=== PATIENT | female | born 1955 | race Hispanic/Latino ===

== ENCOUNTER 2017-05-31 13:52 | Inpatient (IN) | payer MEDICAID, MEDICARE ==
[2017-05-31 13:53] VITALS: BMI 28.6
[2017-05-31 14:56] LABS: BASO # 0.1 K/uL (0.0-0.2); BASO % 0.8 % (0.0-2.0); EOS # 0.4 K/uL (0.0-0.7); EOS % 3.2 % (0.0-4.0); HEMATOCRIT 39.7 % (34.0-47.0); LYMPH % 24.5 % (20.0-40.0); MEAN CELL VOLUME 85.9 fl (81.0-99.0); MEAN CORPUSCULAR HEMOGLOBIN 28.5 pg (27.0-31.0); MEAN CORPUSCULAR HGB CONC 33.2 g/dL (33.0-37.0); MONO # 0.6 K/uL (0.0-0.8); NEUT # 8.2 K/uL (1.8-7.0); NEUT % 66.5 % (50.0-75.0); RED CELL DISTRIBUTION WIDTH 13.2 % (11.5-14.5); WHITE BLOOD COUNT 12.3 K/uL (4.8-10.8)
[2017-05-31 15:06] LABS: ALB/GLOB RATIO 1.1 (1.0-2.1); ALKALINE PHOSPHATASE 98 U/L (38-126); ALT/SGPT 33 U/L (9-52); AST/SGOT 23 U/L (14-36); BILIRUBIN,TOTAL 0.8 mg/dl (0.2-1.3); BLOOD UREA NITROGEN 15 mg/dl (7-17); CALCIUM 9.8 mg/dL (8.4-10.2); CARBON DIOXIDE 24 mmol/L (22-30); CHLORIDE 107 mmol/L (98-107); GFR AFRICAN-AMERICAN > 60; GLUCOSE,RANDOM 112 mg/dL (65-105); POTASSIUM 4.2 MMOL/L (3.6-5.0); SODIUM 144 mmol/l (132-148)
--- NOTE | 2017-05-31 15:24 | ED PDOC ---
HPI: Psych/Substance Abuse Time Seen by Provider: 05/31/17 14:11 Chief Complaint (Nursing): Psychiatric Evaluation Chief Complaint (Provider): Psychiatric Evaluation ED Caveat: Other (Confusion) History Per: Patient History/Exam Limitations: clinical condition Onset/Duration Of Symptoms: Days (x 2-3 weeks) Current Symptoms Are (Timing): Still Present Associated Symptoms: Paranoia, Suicidal Thoughts Additional Complaint(s): Sierra Cao is a 61 y/o female who was brought to the ED for psych evaluation. Patient has a past medical history of depression and schizophrenia, chronic back pain, diabetes, and hypertension, and is mostly bed bound, cared for by sister. Sister states for the past several weeks and especially this morning, patient is having suicidal ideations with paranoia and hallucinations of relatives in the room. Patient has been seeing Dr. Lino, who has been prescribing pain medicine for her back pain. Patient herself appears confused and is a poor historian. PMD: David Lino MD Past Medical History Reviewed: Historical Data, Nursing Documentation, Vital Signs Vital Signs: Last Vital Signs Temp 98.1 F 05/31/17 14:03 Pulse 81 05/31/17 14:03 Resp 20 05/31/17 14:03 BP 198/94 H 05/31/17 14:03 Pulse Ox 99 05/31/17 14:03 - Medical History PMH: Dementia, Depression, Diabetes, HTN, Hypercholesterolemia, Multiple Sclerosis, Paranoia, Schizophrenia Denies: HIV, Chronic Kidney Disease - Surgical History Surgical History: Denies: Appendectomy, CABG, Carotid Endarterectomy, Cholecystectomy, Coronary Stent, Pacemaker, Tonsillectomy - Family History Family History: States: Unknown Family Hx - Living Arrangements Living Arrangements: With Family - Social History Current smoker - smoking cessation education provided: No Alcohol: None Drugs: Denies - Home Medications Home Medications: Ambulatory Orders Medication Instructions Recorded amLODIPine [Norvasc] 10 mg PO DAILY 11/02/16 Atorvastatin [Lipitor] 20 mg PO HS tab 11/06/16 Cholecalciferol (Vitamin D3) 5,000 unit PO DAILY #30 tablet 11/12/16 [Vitamin D3] Lisinopril [Zestril] 20 mg PO DAILY #30 tab 11/12/16 Metoprolol Tartrate [Lopressor] 25 mg PO Q12 #60 tab 11/12/16 Nystatin [Nystop Topical Powder] 1 applic TOP TID #1 bottle 11/12/16 Saccharomyces Boulardi [Florastor] 250 mg PO BID #14 cap 11/12/16 - Allergies Allergies/Adverse Reactions: Allergies Allergy/AdvReac Type Severity Reaction Status Date / Time No Known Allergies Allergy Verified 11/06/16 16:01 Review of Systems Review Of Systems: ROS cannot be obtained secondary to pt's inabilty to answer questions. Physical Exam - Reviewed Nursing Documentation Reviewed: Yes Vital Signs Reviewed: Yes - Physical Exam Appears: Positive for: Non-toxic, No Acute Distress (but elderly appearing) Head Exam: Positive for: ATRAUMATIC, NORMAL INSPECTION, NORMOCEPHALIC Skin: Positive for: Warm, Dry, Pallor (Mild) Eye Exam: Positive for: EOMI, Normal appearance, PERRL Neck: Positive for: Normal, Painless ROM, Supple Cardiovascular/Chest: Positive for: Regular Rate, Rhythm. Negative for: Murmur Respiratory: Positive for: Normal Breath Sounds. Negative for: Accessory Muscle Use, Respiratory Distress Gastrointestinal/Abdominal: Positive for: Normal Exam, Soft. Negative for: Tenderness Extremity: Positive for: Other (global weakness with 4/5 strength bilaterally). Negative for: Normal ROM Neurologic/Psych: Positive for: Oriented (to self and place), Other (paranoia with poor insight) - Laboratory Results Result Diagrams: 06/01/17 07:00 05/31/17 14:40 - ECG O2 Sat by Pulse Oximetry: 99 (RA) Pulse Ox Interpretation: Normal Medical Decision Making Medical Decision Making: Time: 14:11 Initial Plan: --Medical work up to exclude infection, metabolic derangement, dehydration, or other acute medical condition --Will have crisis evaluation Time: 15:00 --Labs were reviewed, and appear clinically unremarkable Time: 16:49 Chest X-Ray: FINDINGS: LUNGS: No active pulmonary disease. PLEURA: No significant pleural effusion identified. No pneumothorax apparent. CARDIOVASCULAR: Normal. OSSEOUS STRUCTURES: No significant abnormalities. VISUALIZED UPPER ABDOMEN: Normal. OTHER FINDINGS: None. IMPRESSION: No active disease. No significant interval change compared to the prior examination(s). Time: 16:00 --Patient placed on ED-OBS for depression, goal: crisis evaluation *SEE ED-OBS TAB FOR FURTHER DOCUMENTATION Scribe Attestation: Documented by Malia Santana, acting as a scribe for Louis Patterson III, DO Provider Scribe Attestation: All medical record entries made by the Scribe were at my direction and personally dictated by me. I have reviewed the chart and agree that the record accurately reflects my personal performance of the history, physical exam, medical decision making, and the department course for this patient. I have also personally directed, reviewed, and agree with the discharge instructions and disposition. ED OBSERVATION Date of observation admission: 05/31/17 Time of observation admission: 16:00 - Observation admission statement Patient is being placed in observation because:: Depression - Goals of Observation Goals of observation are:: Crisis evaluation - Progress Note Progress Note: 05/31/17 Time: 16:00 --Patient is resting. Vital signs stable. Time: 17:30 --Patient resting comfortably. Vital signs stable. --Still pending crisis evaluation Time: 18:30 --Still pending urine and crisis evaluation Time: 19:00 --Patient signed out by me to Dr. Marni Headley, pending crisis evaluation and possible psychiatric admission Disposition - Clinical Impression Clinical Impression: UTI (urinary tract infection), Hypertension, Dementia, Paranoia - Patient ED Disposition Is Patient to be Admitted: Yes Counseled Patient/Family Regarding: Studies Performed - Disposition Disposition: Transfer of Care Disposition Time: 19:00 Condition: FAIR Patient Signed Over To: Marni Headley (Pending crisis evaluation and final disposition)
--- NOTE | 2017-05-31 16:51 | RAD ---
HISTORY: r/o infiltrate COMPARISON: 11/02/2016 TECHNIQUE: Chest PA and lateral FINDINGS: LUNGS: No active pulmonary disease. PLEURA: No significant pleural effusion identified. No pneumothorax apparent. CARDIOVASCULAR: Normal. OSSEOUS STRUCTURES: No significant abnormalities. VISUALIZED UPPER ABDOMEN: Normal. OTHER FINDINGS: None. IMPRESSION: No active disease. No significant interval change compared to the prior examination(s).
--- NOTE | 2017-05-31 19:32 | ED PDOC ---
- Laboratory Results Result Diagrams: 05/31/17 14:40 05/31/17 14:40 - ECG O2 Sat by Pulse Oximetry: 99 (RA) Pulse Ox Interpretation: Normal Medical Decision Making Medical Decision Making: Time: 19:00 --Patient is signed out to me by Dr. Louis Patterson III, DO, pending crisis evaluation and possible admission See ED-OBS tab for all further documentation Vital signs are stable. Labs reviewed. In my opinion there are no current acute medical conditions that contraindicate the placement of this patient in a psychiatric unit. Scribe Attestation: Documented by Malia Santana, acting as a scribe for Marni Headley MD Provider Scribe Attestation: All medical record entries made by the Scribe were at my direction and personally dictated by me. I have reviewed the chart and agree that the record accurately reflects my personal performance of the history, physical exam, medical decision making, and the department course for this patient. I have also personally directed, reviewed, and agree with the discharge instructions and disposition. Disposition Counseled Patient/Family Regarding: Studies Performed, Diagnosis - Clinical Impression Clinical Impression: UTI (urinary tract infection), Hypertension, Dementia - POA Present On Arrival: None - Disposition Disposition: Admitted as In-Patient Disposition Time: 22:00 Condition: FAIR ED OBSERVATION Date of observation admission: 05/31/17 Time of observation admission: 16:00 - Observation admission statement Patient is being placed in observation because:: Depression - Goals of Observation Goals of observation are:: Crisis evaluation - Progress Note Progress Note: 05/31/17 Time: 19:00 --Patient is resting comfortably, and awaiting POA to come sign for psychiatric admission Time: 20:00 --Urine drug screen and UA pending --POA arrival still pending Time: 20:30 --Patient continues to rest. Vital signs stable. --Labs reviewed, significant for elevated WBC in urine. Toxicology negative. Time: 21:50 --Lisinopril 20 mg PO --Amlodipine 10 mg PO --Macrobid 100 mg PO Time: 22:00 --Patient continues to rest. Vital signs stable. Still awaiting POA to sign for admission
[2017-05-31 20:33] LABS: URINE BACTERIA MOD (<OCC); URINE BILIRUBIN NEGATIVE (NEGATIVE); URINE BLOOD NEGATIVE (NEGATIVE); URINE COLOR YELLOW (YELLOW); URINE GLUCOSE (UA) NEG (Normal); URINE KETONE NEGATIVE (NEGATIVE); URINE LEUKOCYTE ESTERASE TRACE Leu/uL (Negative); URINE PROTEIN 30 mg/dL (NEGATIVE); URINE UROBILINOGEN 0.2-1.0 mg/dL (0.2-1.0)
[2017-05-31 20:34] LABS: RBC URINE 3 /hpf (0-3); WBC URINE 38 /hpf (0-5)
[2017-05-31] MEDS ORDERED: Magnesium Hydroxide Susp 30 ml UD PO PRN (23:44)
[2017-05-31] MEDS ORDERED: Bismuth Subsalicylate 262 mg/15 ml Sus (240 ml) PO PRN (23:44)
[2017-05-31] MEDS ORDERED: Alum-Mag Hydrox-Simethicone Susp (30 mL) PO PRN (23:44)
--- NOTE | 2017-06-01 01:04 | PCM.BM ---
<Deepika Durhama Audrey - Last Filed: 06/01/17 01:05> Treatment Plan Problems - Problems identified on initial assessmt Hopelessness/Helpness Date Initiated: 06/01/17 Time Initiated: 01:03 Assessment reference: NA Status: Active Medication nonadherence Date Initiated: 06/01/17 Time Initiated: 01:03 Assessment reference: NA Status: Active Treatment assets and liabiliti Patient Assests: cooperative, good support system Patient Liabilities: physical pain, medical problems (MS), imparied memory - Milieu Protocol Maintain good personal hygiene: daily Encourage regular showers, daily Remind patient to perform daily oral care, daily Assist patient to perform ADL's Conduct patient checks and document Observation sheet: Q15 minutes Maintain personal safety: every shift Educate patient to report safety concerns to staff, every shift Monitor environment for contraband/sharps Medication safety: Monitor for expected outcome, potential side effects: every shift, Assess barriers to learning: every shift, Assess readiness for medication education: every shift <Nichole Pelaez - Last Filed: 06/01/17 15:52> Family Contact Family contact: Patient agrees to contact, Telephone contact initiated by staff , Other (Pt has poor communication with her immediate family. Pt's friend/ caregiver, Brandi has been caring for pt and is pt's Healthcare Proxy.) Family contact name: Brandi Prince Family contacted how many times per week?: 2 Family contact comment: [phone] - Goals for Treatment Patient goals for treatment: Pt to be encouraged to attend activity and clinical groups 3-5x per week to identify at least 2 factors contributing to increased aggression and worsened depression. Pt to be encouraged to participate in group activity to develop effective and appropiate coping skills and decreased aggressive bx's. Discharge/Continuing Care - Education Needs Education Needs: Family Medication, Family Diagnosis/Disease Process, Family Coping Skills, Family Placement options, Family Community resources, Family Activities of Daily Living, Family Nutrition, Family Uses of Medical Equipment, Family Health Practices/Safety, Family Personal Hygiene/Grooming, Family Aftercare Safety Plan, Patient Medication, Patient Diagnosis/Disease Process, Patient Coping Skills, Patient Placement options, Patient Community resources, Patient Activities of Daily Living, Patient Nutrition, Patient Uses of Medical Equipment, Patient Health Practices/Safety, Patient Personal Hygiene/Grooming, Patient Aftercare Safety Plan - Discharge Discharge Criteria: Tolerates medication w/o severe side effects, Free of Suicidal thoughts, Free of agitation, Normal sleep pattern, Reduction of target symptoms - Treatment Team Participation Discussed with Family/SO: Yes (Treatment plan reviewed with caregiver via telephone) <Jesus Perry - Last Filed: 06/02/17 10:46>
[2017-06-01 07:55] LABS: HEMATOCRIT 38.3 % (34.0-47.0); MEAN CELL VOLUME 85.4 fl (81.0-99.0); MEAN CORPUSCULAR HEMOGLOBIN 28.1 pg (27.0-31.0); RED CELL DISTRIBUTION WIDTH 12.9 % (11.5-14.5); WHITE BLOOD COUNT 11.1 K/uL (4.8-10.8)
--- NOTE | 2017-06-01 08:21 | PCM.PSYCH ---
Initial Psychiatric Evaluation - Initial Psychiatric Evaluation Type of Admission: Voluntary Chief Complaint (in patient's own words): "I don't know why I'm here" Patient's Reaction to Hospitalization: HPI: 61 year old Single female, w/ h/o dementia, MS, chronic back pain , diabetes, HTN, depression, presents w/ suicidal threats in the context of non- compliance w/ medications. Patient is now denying suidical ideation/plan/ intent. Denies hallucinations to casualty underwriter, but as per chart patient has admitted to having intermittent visual hallucinations to her sister. Patient's sister stated that she does need help at this time. Patient eats one meal all day with some snacks. No HI. Patient is A + O x 2 (self, location) and does not know why she is in the hospital, reports that her mood is fine at this time and denies ever making suicidal threats. Collateral obtained in ER by organic lab worker: Patient's sister Brandi Mercer , stated that the patient is getting more aggressive lately. She is talking about killing herself and also stating that her sister would as well. Patient's sister stated that she is not med compliant and that she tends to deny all mental health issues. She will become agitated when prompted to take medication and will begin to scream at the sister. Patient's sister stated that the patient is better with her behavior with others. She stated that she can't get her to walk sometimes or to change her diaper. Patient's sister is worried about her eating as well. She reported that the patient has lost about 30 lbs over the past year. She reported that it is a struggle to get the patient to eat meals. Patient's sister is afraid that she is decompensating. Oracle Database Administrator also spoke with patient's sister, Brandi Mercer, who is also the patient 's health care proxy. Oracle Database Administrator given permission to modify the patient's medications as medically and psychiatrically indicated. PPHx: Patient was admitted to [facility] from 04/26/15 to 05/09/15. Not currently complaint w/ treatment or followup. Did not follow-up w/ psychiatric followup at all after discharge from the hospital in 2014. She was discharged on Aricept 5 mg PO HS, Celexa 20 mg PO Daily at that time. MHx: MS, Chronic back pain, Diabetes, Hypertension; *Home meds confirmed by [facility]- Atenolol 50 mg PO Daily, Crestor 10 mg PO HS, Losartan 100 mg PO Daily All: NKDA SHx: Lives w/ sister in her home. Denies ETOH/drugs. --- Psychology consult from 05/03/[address] Barney: Pt is a 59 year old female admitted to [facility] and referred to the casualty underwriter for eval. On the DRS, pt scored an overall scored of 108. Pt scored within normal limits of Attention, Construction and Conceptualization tasks. Pt scored in the Deficient Range on Initiation and Memory tasks. Overall 108 (125+ within normal limit) Attention: 32 (normal limits) Construction 5 (normal limits) Conceptualization 35 (within normal limtis) Initiation 21 (deficient range) Memory 15 (Deficient range) Current Medications: Active Medications Generic Name Dose Route Start Last Admin Trade Name Freq PRN Reason Stop Dose Admin Acetaminophen 650 mg 05/31/17 23:44 Tylenol 325mg Tab PO Q4 PRN Pain, moderate (4-7) Al Hydrox/Mg Hydrox/Simethicone 30 ml 05/31/17 23:44 Maalox Plus 30 Ml PO Q4 PRN Dyspepsia Amlodipine Besylate 10 mg 06/01/17 09:00 Norvasc PO DAILY [facility] Atorvastatin Calcium 20 mg 06/01/17 22:00 Lipitor PO HS LOAN Bismuth Subsalicylate 524 mg 05/31/17 23:44 Pepto-Bismol PO Q4 PRN Diarrhea Insulin Human Regular 0 units 06/01/17 07:30 Humulin R SC ACHS [facility] Protocol Lisinopril 20 mg 06/01/17 09:00 Zestril PO DAILY LOAN Lorazepam 0.5 mg 06/01/17 00:37 Ativan PO 06/15/17 00:38 HS PRN Insomnia Lorazepam 0.5 mg 06/01/17 00:37 Ativan PO 06/15/17 00:38 Q6 PRN Anixety/Agitation Magnesium Hydroxide 30 ml 05/31/17 23:44 Milk Of Magnesia PO HS PRN Constipation Metoprolol Tartrate 25 mg 06/01/17 09:00 Lopressor PO Q12 LOAN Nitrofurantoin Macrocrystals 100 mg 05/31/17 21:00 05/31/17 21:05 Macrobid PO 100 mg Q12 LOAN Administration Saccharomyces Boulardii 250 mg 06/01/17 09:00 Florastor PO BID [facility] Past Psychiatric History - Past Psychiatric History Previous Treatment History: Inpatient Pertinent Medical Hx (Current Medical&Sleep Prob, Allergies): Allergies Allergy/AdvReac Type Severity Reaction Status Date / Time No Known Allergies Allergy Verified 11/06/16 16:01 amLODIPine [Norvasc] 10 mg PO DAILY 11/02/16 Atorvastatin [Lipitor] 20 mg PO HS tab 11/06/16 Cholecalciferol (Vitamin D3) [Vitamin D3] 5,000 unit PO DAILY #30 tablet Lisinopril [Zestril] 20 mg PO DAILY #30 tab 11/12/16 Metoprolol Tartrate [Lopressor] 25 mg PO Q12 #60 tab 11/12/16 Nystatin [Nystop Topical Powder] 1 applic TOP TID #1 bottle 11/12/16 Saccharomyces Boulardi [Florastor] 250 mg PO BID #14 cap 11/12/16 Review of Systems - Psychiatric Psychiatric: As Per HPI, Anhedonia, Behavioral Changes, Change in Appetite, Depression, Hopelessness, Irritability, Suicidal Ideation, Visual Hallucinations Mental Status Examination - Personal Presentation Personal Presentation: Looks older than stated age - Affect Affect: Broad - Motor Activity Motor Activity: Calm - Reliability in Providing Information Reliability in Providing Information: Poor, due to cognitve impairment - Speech Speech: Coherent - Mood Mood: Neutral - Formal Thought Process Formal Thought Process: Loosening of associations - Hallucinations/Delusions Additional comments: Denies AH/VH/paranoia/delusions - Obsessions/Compulsions Obsessions: No Compulsions: No - Cognitive Functions Orientation: Person, Place Sensorium: Alert Attention/Concentration: Easily distracted Judgement: Imparied, as evidence by: Lack of insight into illness Memory: Recent impaired, as evidence by: Inability to recall events of the day, Recent imparied as evidence by:Inability to complete 3/3 object recall, Remote impaired as evidenced by: Inability to recall sig life events, Remote impaired as evidenced by: Inability to recall historical events - Risk Risk: Diminished functioning - Strength & Assets Inventory Strength & Assets Inventory: Family support, Cooperative - Limitations Limitations: Decreased memory, recent DSM 5 DX - DSM 5 DSM 5 Diagnosis: Dementia w/ behavioral disturbances, Depressive Disorder - Recommended/Plan of Treatment Treatment Recommendations and Plan of Treatment: Dementia w/ behavioral disturbances, Depressive Disorder -Admit to geropsychiatry unit -Hospitalist consult re: chronic medical issues (Home medications- Atenolol 50 mg PO Daily, Crestor 10 mg PO HS, Losartan 100 mg PO Daily) -Medical tx for UTI -Start Aricept 5 mg PO HS -Start Celexa 20 mg PO Daily -Individual and group therapy -Disposition planning Projected ELOS: 5-7 days Discharge Plan and Discharge Criteria: Discharge when psychiatrically stable - Smoking Cessation Smoking Cessation Initiated: No Reason for not providing: Not indicated
[2017-06-01 08:43] LABS: T4 9.3 ug/dl (5.5-11.0)
--- NOTE | 2017-06-01 08:50 | CARD ---
APPROVED REPORT EKG Measurement Heart [id number] <Conclusion> Normal sinus rhythm Cannot rule out Anterior infarct, age undetermined Abnormal ECG
[2017-06-01] MEDS: Insulin Regular 100 units/ml SC SCH ×4 (08:52→21:01)
[2017-06-01] MEDS: Saccharomyces Boulardi 250 mg Cap PO SCH ×2 (08:54→17:48)
[2017-06-01 08:57] LABS: THYROID STIMULATING HORMONE 2.46 mIU/ML (0.46-4.68)
[2017-06-01 17:55] LABS: FOLATE 17.2 ng/mL
--- NOTE | 2017-06-02 08:13 | PCM.PYCHPN ---
Psychiatric Progress Note - Psychiatric Progress Note Patient seen today, length of contact: Patient evaluated, case discussed with team, chart reviewed, 35 min Patient Chief Complaint: "I'm okay" Problems Identified/Issues Discussed: Patient continues to have a poor memory and does not recall why she is in the hospital. She denies current ideation to harm herself. She denies that she currently feels depressed or anxious. No current SI/HI. Denies hallucinations. Denies paranoia. Medical Record Reviewed: Yes Mental Status Examination - Cognitive Function Orientation: Person, Place Memory: Impaired Attention: Poor Concentration: Poor Association: Loose Fund of Knowledge: Poor Decription of patient's judgement and insights: Chronic poor I/J due to dementia - Mood Mood: Neutral - Affect Affect: Broad - Speech Speech: Appropriate - Formal Thought Process Formal Thought Process: Loosening of associations Psychotic Thoughts and Behaviors: Denies AH/VH - Suicidal Ideation Suicidal Ideation: No - Homicidal Ideation Homicidal Ideation: No Goal/Treatment Plan - Goal/Treatment Plan Need for Continued Stay: Remain at risks for inpatient hospitalization, Discharge may exacerbated symptoms, Severe functional impairment Progress Toward Problem(s) and Goals/Treatment Plan: Dementia w/ behavioral disturbances, Depressive Disorder -Hospitalist consult re: chronic medical issues (Home medications- Atenolol 50 mg PO Daily, Crestor 10 mg PO HS, Losartan 100 mg PO Daily) -Medical tx for UTI -Continue Aricept 5 mg PO HS -Continue Celexa 20 mg PO Daily -Individual and group therapy -Disposition planning Estimated Date of D/C: 06/04/17 - Smoking Cessation Smoking Cessation Initiated: No Reason for not providing: Not indicated
[2017-06-02] MEDS: Saccharomyces Boulardi 250 mg Cap PO SCH ×2 (08:45→16:46)
[2017-06-02] MEDS: Insulin Regular 100 units/ml SC SCH ×4 (08:46→20:59)
--- NOTE | 2017-06-02 13:46 | CP.PCM.CON ---
History of Present Illness - History of Present Illness History of Present Illness: 61 y/o female with PMH Schizofrenia, depression and paranoia, DM , HTN MKS , chronic lower back pain was brought to the ED for psych evaluation. Patient lives and is being cared for by her sister.As per sister patient has been having suicidal ideations with paranoia and hallucinations. Patient at present is pleasant, answers questions and follows command. she denies any physical complains, CP, SOB, palpitations, [place],abdominal pain, urinary sx or changes in bowel movements. She states that does not know why she was brought to hospital . Denies a being suicidal, depressed. Denies auditory or visual hallucinations. PMH: Depression; Paranoia; Schizophrenia; DM II; HTN; Multiple Sclerosis with cognitive defects; Dementia's evaluation is in progress; Chronic Back Pain; C Diff colitis; Homicide Ideation PSH: No Surgical Hx SH: former Smoker; No Alcohol; No illegal Drugs; live with Family FH: No Known Family Hx Allergies: NKDA ROS ; 14 point review of systems negative except above Review of Systems - Review of Systems All systems: reviewed and no additional remarkable complaints except Past Patient History - Infectious Disease Hx of Infectious Diseases: None - Tetanus Immunizations Tetanus Immunization: Unknown - Past Medical History & Family History Past Medical History?: Yes - Past Social History Alcohol: None Drugs: Denies - CARDIAC Hx Cardiac Disorders: No Hx Hypercholesterolemia: Yes Hx Hypertension: Yes - PULMONARY Hx Sleep Apnea: Yes - NEUROLOGICAL HX Cerebrovascular Accident: No - HEENT Hx HEENT Problems: No Hx Cataracts: No Hx Deafness: No Hx Difficulty Chewing: No Hx Epistaxis: No Hx Glaucoma: No Hx Macular Degeneration: No - RENAL Hx Renal Failure: No - ENDOCRINE/METABOLIC Hx Diabetes Mellitus Type 1: No Hx Diabetes Mellitus Type 2: Yes - HEMATOLOGICAL/ONCOLOGICAL Hx Cancer: No Hx Human Immunodeficiency Virus (HIV): No - INTEGUMENTARY Hx Dermatological Problems: No Hx Basil Cell: No Hx Toscano: No Hx Cellulitis: No Hx Eczema: No Hx Melanoma: No Hx Psoriasis: No Hx Squamous Cell: No - MUSCULOSKELETAL/RHEUMATOLOGICAL Hx Falls: No - GASTROINTESTINAL Hx Gastrointestinal Disorders: No - GENITOURINARY/GYNECOLOGICAL Hx Sexually Transmitted Disorders: No - PSYCHIATRIC Hx Depression: Yes Hx Substance Use: No - SURGICAL HISTORY Hx Appendectomy: No Hx Carotid Endarterectomy: No Hx Cholecystectomy: No Hx Coronary Artery Bypass Graft: No Hx Coronary Stent: No Hx Tonsillectomy: No - ANESTHESIA Hx Anesthesia: No Hx Anesthesia Reactions: No Hx Malignant Hyperthermia: No Meds Allergies/Adverse Reactions: Allergies Allergy/AdvReac Type Severity Reaction Status Date / Time No Known Allergies Allergy Verified 11/06/16 16:01 - Medications Medications: Current Medications Acetaminophen (Tylenol 325mg Tab) 650 mg PO Q4 PRN PRN Reason: Pain, moderate (4-7) Al Hydrox/Mg Hydrox/Simethicone (Maalox Plus 30 Ml) 30 ml PO Q4 PRN PRN Reason: Dyspepsia Atenolol (Tenormin) 50 mg PO DAILY [facility] Last Admin: 06/02/17 08:47 Dose: 50 mg Atorvastatin Calcium (Lipitor) 20 mg PO HS [facility] Last Admin: 06/01/17 21:04 Dose: 20 mg Bismuth Subsalicylate (Pepto-Bismol) 524 mg PO Q4 PRN PRN Reason: Diarrhea Citalopram Hydrobromide (Celexa) 20 mg PO DAILY [facility] Last Admin: 06/02/17 08:44 Dose: 20 mg Donepezil HCl (Aricept) 5 mg PO HS [facility] Last Admin: 06/01/17 21:04 Dose: 5 mg Insulin Human Regular (Humulin R) 0 units SC [facility] PRN Reason: Protocol Last Admin: 06/02/17 08:46 Dose: Not Given Lorazepam (Ativan) 0.5 mg PO HS PRN PRN Reason: Insomnia Stop: 06/15/17 00:38 Lorazepam (Ativan) 0.5 mg PO Q6 PRN PRN Reason: Anixety/Agitation Stop: 06/15/17 00:38 Losartan Potassium (Cozaar) 100 mg PO DAILY [facility] Last Admin: 06/02/17 08:45 Dose: 100 mg Magnesium Hydroxide (Milk Of Magnesia) 30 ml PO HS PRN PRN Reason: Constipation Nitrofurantoin Macrocrystals (Macrobid) 100 mg PO Q12 [facility] Last Admin: 06/02/17 08:46 Dose: 100 mg Saccharomyces Boulardii (Florastor) 250 mg PO BID [facility] Last Admin: 06/02/17 08:45 Dose: 250 mg Physical Exam - Constitutional Appears: Well, Non-toxic, No Acute Distress - Head Exam Head Exam: ATRAUMATIC, NORMAL INSPECTION, NORMOCEPHALIC - Eye Exam Eye Exam: EOMI, Normal appearance, PERRL Pupil Exam: NORMAL ACCOMODATION - ENT Exam ENT Exam: Mucous Membranes Moist, Normal Exam - Neck Exam Neck exam: Positive for: Full Rom, Normal Inspection - Respiratory Exam Respiratory Exam: Clear to Auscultation Bilateral, NORMAL BREATHING PATTERN. absent: Rales, Rhonchi, Wheezes - Cardiovascular Exam Cardiovascular Exam: REGULAR RHYTHM, RRR, +S1, +S2. absent: JVD - GI/Abdominal Exam GI & Abdominal Exam: Normal Bowel Sounds, Soft. absent: Distended, Guarding, Rebound, Tenderness - Rectal Exam Rectal Exam: Deferred - Extremities Exam Extremities exam: Positive for: normal capillary refill, normal inspection, pedal pulses present. Negative for: calf tenderness, pedal edema - Back Exam Back exam: NORMAL INSPECTION - Neurological Exam Neurological exam: Alert, CN II-XII Intact, Oriented x3 - Psychiatric Exam Psychiatric exam: Normal Affect - Skin Skin Exam: Dry, Intact, Pallor, Warm Results - Vital Signs Recent Vital Signs: Last Vital Signs Temp 97.6 F 06/02/17 06:00 Pulse 68 06/02/17 08:47 Resp 20 06/02/17 06:00 BP 160/80 H 06/02/17 08:47 Pulse Ox 98 05/31/17 23:19 - Labs Result Diagrams: 06/01/17 07:00 05/31/17 14:40 Labs: Laboratory Results - last 24 hr 06/01/17 06/01/17 06/01/17 07:00 07:00 07:00 POC Glucose (mg/dL) Hemoglobin A1c 6.3 Folate 17.2 RPR Nonreactive 06/01/17 06/01/17 06/01/17 11:51 15:49 20:07 POC Glucose (mg/dL) 171 H 168 H 154 H Hemoglobin A1c Folate RPR 06/02/17 05:20 POC Glucose (mg/dL) 128 H Hemoglobin A1c Folate RPR - Imaging and Cardiology Chest x-ray Additional comment: no active disease Assessment & Plan - Assessment and Plan (Free Text) Assessment: 61 y/o female with PMH Schizofrenia, depression and paranoia, DM , HTN MS , chronic lower back pain was brought to the ED for psych evaluation. Patient lives and is being cared for by her sister.As per sister patient has been having suicidal ideations with paranoia and hallucinations. Patient at present is pleasant, answers questions and follows command. she denies any physical complains, CP, SOB, palpitations, [place],abdominal pain, urinary sx or changes in bowel movements. She states that does not know why she was brought to hospital . Denies a being suicidal, depressed. Denies auditory or visual hallucinations. 1. Psychiatric disorder managemnet as per psych 2. UTI Ua showed bacteria , LE, WBC and nitrate + patient is afebrile send urine cx Started Nitrofurantonie PO 3.HTN resume hallie emeds 4. DM type II Accuchecks, insulin coverage resume home meds diabetic diet patient used to be on levemir at home Will need to check with her pharmacy 5.Dyslipidemia on Statin 6.DVT prophylaxis Lovenox SCD
[2017-06-02] MEDS ORDERED: Insulin Lispro (humaLOG) 100 Units/ml Inj SC SCH (22:00)
[2017-06-03] MEDS: Insulin Regular 100 units/ml SC SCH ×4 (07:55→21:02)
[2017-06-03] MEDS: Saccharomyces Boulardi 250 mg Cap PO SCH ×2 (08:41→16:46)
--- NOTE | 2017-06-03 09:48 | PCM.PYCHPN ---
Psychiatric Progress Note - Psychiatric Progress Note Patient seen today, length of contact: Patient evaluated, case discussed with team, chart reviewed, 35 min Patient Chief Complaint: "I'm okay" Problems Identified/Issues Discussed: No signficant events overnight. Patient continues to have a poor memory and does not recall why she is in the hospital. She denies current ideation to harm herself. She denies that she currently feels depressed or anxious. No current SI/HI. Denies hallucinations. Denies paranoia. Medication Change: No Medical Record Reviewed: Yes Consults ordered or reviewed: Hospitalist consult appreciated; Psychology consult ordered Mental Status Examination - Cognitive Function Orientation: Person, Place Memory: Impaired Attention: Poor Concentration: Poor Association: Loose Fund of Knowledge: Poor Decription of patient's judgement and insights: Chronic poor I/J due to dementia - Mood Mood: Neutral - Affect Affect: Broad - Speech Speech: Appropriate - Formal Thought Process Formal Thought Process: Loosening of associations Psychotic Thoughts and Behaviors: Denies AH/VH - Suicidal Ideation Suicidal Ideation: No - Homicidal Ideation Homicidal Ideation: No Goal/Treatment Plan - Goal/Treatment Plan Need for Continued Stay: Remain at risks for inpatient hospitalization, Discharge may exacerbated symptoms, Severe functional impairment Progress Toward Problem(s) and Goals/Treatment Plan: Dementia w/ behavioral disturbances, Depressive Disorder; patient needs continued monitoring for safety and treatment -Psychology consult to determine current level of cognitive functioning -Hospitalist consult appreciated -Medical tx for UTI -Continue Aricept 5 mg PO HS -Continue Celexa 20 mg PO Daily -Individual and group therapy -Disposition planning Estimated Date of D/C: 06/07/17 - Smoking Cessation Smoking Cessation Initiated: No Reason for not providing: Not indicated
[2017-06-04] MEDS: Insulin Regular 100 units/ml SC SCH ×4 (07:42→21:20)
--- NOTE | 2017-06-04 08:34 | CP.PCM.CON ---
History of Present Illness - History of Present Illness History of Present Illness: Pt is a 61 year old female admitted to [facility] (formerly [facility]3] and referred to the video games storywriter for cognitive testing. On the DRS, pt scored an overall score of 108. Pt scored in the Deficient Range on Memory, Construction, and Initiation tasks. Pt' s Attention and Conceptualization skills fell within normal limits. Overall 108 Attention 34 Memory 16 (18=+ intact skills) conceptualization 33 Construction 3 (4+ = intact skills) Initiation 22 (32+ = intact cognitive skills) Due to deficits evident, patient requires assistance with multiple tasks to ensure safety. Thank you for this referral, Dr. Barney Past Patient History - Infectious Disease Hx of Infectious Diseases: None - Tetanus Immunizations Tetanus Immunization: Unknown - Past Medical History & Family History Past Medical History?: Yes - Past Social History Alcohol: None Drugs: Denies - CARDIAC Hx Cardiac Disorders: No Hx Hypercholesterolemia: Yes Hx Hypertension: Yes - PULMONARY Hx Sleep Apnea: Yes - NEUROLOGICAL HX Cerebrovascular Accident: No - HEENT Hx HEENT Problems: No Hx Cataracts: No Hx Deafness: No Hx Difficulty Chewing: No Hx Epistaxis: No Hx Glaucoma: No Hx Macular Degeneration: No - RENAL Hx Renal Failure: No - ENDOCRINE/METABOLIC Hx Diabetes Mellitus Type 1: No Hx Diabetes Mellitus Type 2: Yes - HEMATOLOGICAL/ONCOLOGICAL Hx Cancer: No Hx Human Immunodeficiency Virus (HIV): No - INTEGUMENTARY Hx Dermatological Problems: No Hx Basil Cell: No Hx [place]: No Hx Cellulitis: No Hx Eczema: No Hx Melanoma: No Hx Psoriasis: No Hx Squamous Cell: No - MUSCULOSKELETAL/RHEUMATOLOGICAL Hx Falls: No - GASTROINTESTINAL Hx Gastrointestinal Disorders: No - GENITOURINARY/GYNECOLOGICAL Hx Sexually Transmitted Disorders: No - PSYCHIATRIC Hx Depression: Yes Hx Substance Use: No - SURGICAL HISTORY Hx Appendectomy: No Hx Carotid Endarterectomy: No Hx Cholecystectomy: No Hx Coronary Artery Bypass Graft: No Hx Coronary Stent: No Hx Tonsillectomy: No - ANESTHESIA Hx Anesthesia: No Hx Anesthesia Reactions: No Hx Malignant Hyperthermia: No Meds Allergies/Adverse Reactions: Allergies Allergy/AdvReac Type Severity Reaction Status Date / Time No Known Allergies Allergy Verified 11/06/16 16:01 - Medications Medications: Current Medications Acetaminophen (Tylenol 325mg Tab) 650 mg PO Q4 PRN PRN Reason: Pain, moderate (4-7) Al Hydrox/Mg Hydrox/Simethicone (Maalox Plus 30 Ml) 30 ml PO Q4 PRN PRN Reason: Dyspepsia Atenolol (Tenormin) 50 mg PO DAILY [facility] Last Admin: 06/03/17 08:41 Dose: 50 mg Atorvastatin Calcium (Lipitor) 20 mg PO HS [facility] Last Admin: 06/03/17 21:01 Dose: 20 mg Bismuth Subsalicylate (Pepto-Bismol) 524 mg PO Q4 PRN PRN Reason: Diarrhea Cholecalciferol (Vitamin D) 5,000 iu PO DAILY [facility] Last Admin: 06/03/17 08:41 Dose: 5,000 iu Citalopram Hydrobromide (Celexa) 20 mg PO DAILY [facility] Last Admin: 06/03/17 08:40 Dose: 20 mg Donepezil HCl (Aricept) 5 mg PO HS [facility] Last Admin: 06/03/17 21:01 Dose: 5 mg Insulin Human Regular (Humulin R) 0 units SC [facility] PRN Reason: Protocol Last Admin: 06/04/17 07:42 Dose: Not Given Lorazepam (Ativan) 0.5 mg PO HS PRN PRN Reason: Insomnia Stop: 06/15/17 00:38 Lorazepam (Ativan) 0.5 mg PO Q6 PRN PRN Reason: Anixety/Agitation Stop: 06/15/17 00:38 Losartan Potassium (Cozaar) 100 mg PO DAILY [facility] Last Admin: 06/03/17 08:40 Dose: 100 mg Magnesium Hydroxide (Milk Of Magnesia) 30 ml PO HS PRN PRN Reason: Constipation Nitrofurantoin Macrocrystals (Macrobid) 100 mg PO Q12 [facility] Last Admin: 06/03/17 21:01 Dose: 100 mg Saccharomyces Boulardii (Florastor) 250 mg PO BID [facility] Last Admin: 06/03/17 16:46 Dose: 250 mg Results - Vital Signs Recent Vital Signs: Last Vital Signs Temp 97.8 F 06/04/17 06:00 Pulse 67 06/04/17 06:00 Resp 20 06/04/17 06:00 BP 145/75 06/04/17 06:00 Pulse Ox 98 05/31/17 23:19 - Labs Result Diagrams: 06/01/17 07:00 05/31/17 14:40 Labs: Laboratory Results - last 24 hr 06/03/17 06/03/17 06/03/17 05:41 11:46 15:14 POC Glucose (mg/dL) 106 185 H 192 H
[2017-06-04] MEDS: Saccharomyces Boulardi 250 mg Cap PO SCH ×2 (08:37→16:13)
--- NOTE | 2017-06-04 09:01 | PCM.PYCHPN ---
Psychiatric Progress Note - Psychiatric Progress Note Patient seen today, length of contact: Patient evaluated, case discussed with team, chart reviewed, 35 min Patient Chief Complaint: "I'm okay" Problems Identified/Issues Discussed: No signficant events overnight. Patient denies currently feeling depressed or anxious. She denies current ideation to harm herself. No current SI/HI. Denies hallucinations. Denies paranoia. Patient evaluated by psychologist today. Medication Change: No Medical Record Reviewed: Yes Consults ordered or reviewed: Psychology consult: Pt is a 61 year old female admitted to [facility] and referred to the movie writer for cognitive testing. On the DRS, pt scored an overall score of 108. Pt scored in the Deficient Range on Memory, Construction, and Initiation tasks. Pt' s Attention and Conceptualization skills fell within normal limits. Overall 108 Attention 34 Memory 16 (18=+ intact skills) conceptualization 33 Construction 3 (4+ = intact skills) Initiation 22 (32+ = intact cognitive skills) Due to deficits evident, patient requires assistance with multiple tasks to ensure safety. Thank you for this referral, Dr. Barney Mental Status Examination - Cognitive Function Orientation: Person, Place Memory: Impaired Attention: WNL Concentration: Poor Association: WNL Fund of Knowledge: Poor Decription of patient's judgement and insights: Limited I/J - Mood Mood: Neutral - Affect Affect: Constricted - Speech Speech: Appropriate - Formal Thought Process Formal Thought Process: Loosening of associations Psychotic Thoughts and Behaviors: Denies AH/VH - Suicidal Ideation Suicidal Ideation: No - Homicidal Ideation Homicidal Ideation: No Goal/Treatment Plan - Goal/Treatment Plan Need for Continued Stay: Remain at risks for inpatient hospitalization, Discharge may exacerbated symptoms, Severe functional impairment Progress Toward Problem(s) and Goals/Treatment Plan: Dementia w/ behavioral disturbances, Depressive Disorder; patient needs continued monitoring for safety and treatment -Psychology consult appreciated -Hospitalist consult appreciated -Medical tx for UTI -Continue Aricept 5 mg PO HS -Continue Celexa 20 mg PO Daily -Individual and group therapy -Disposition planning Estimated Date of D/C: 06/07/17
[2017-06-04 13:20] VITALS: O2SAT 99
[2017-06-05] MEDS: Saccharomyces Boulardi 250 mg Cap PO SCH ×2 (09:30→16:39)
[2017-06-05] MEDS: Insulin Regular 100 units/ml SC SCH ×4 (09:39→22:24)
--- NOTE | 2017-06-05 10:44 | PCM.PYCHPN ---
Psychiatric Progress Note - Psychiatric Progress Note Patient seen today, length of contact: Patient evaluated, case discussed with team, chart reviewed, 35 min Patient Chief Complaint: i was feeling down, staff report pt has been calm, rx. adherent with assistance , sleeping and eating fairly well with set up, has not received prns within past 24 ,physical therapy has been to see and evaluate pt pt cannot stand up or sit unassisted, receiving q 2hrs prn and per status change of position and hob elevation in po intake Problems Identified/Issues Discussed: alteration in thought process/cognitive status Overall 108 Attention 34 Memory 16 (18=+ intact skills) conceptualization 33 Construction 3 (4+ = intact skills) Initiation 22 (32+ = intact cognitive skills) Due to deficits evident, patient requires assistance with multiple tasks to ensure safety. Thank you for this referral, Dr. Barney Medical Problems: per chart Diagnostic Results: per psychiatry per medicine per nursing per social work DSM 5 Symptoms Update: alteration in cognition alteration in self care Medication Change: No Medical Record Reviewed: Yes Consults ordered or reviewed: hospitalist/psychologist Mental Status Examination - Cognitive Function Orientation: Person, Place Memory: Impaired Attention: WNL Concentration: Poor Association: WNL Fund of Knowledge: Poor Decription of patient's judgement and insights: impaired - Mood Mood: Neutral - Affect Affect: Constricted - Speech Speech: Appropriate - Formal Thought Process Formal Thought Process: Loosening of associations - Suicidal Ideation Suicidal Ideation: No - Homicidal Ideation Homicidal Ideation: No Goal/Treatment Plan - Goal/Treatment Plan Need for Continued Stay: Remain at risks for inpatient hospitalization, Discharge may exacerbated symptoms, Severe functional impairment Progress Toward Problem(s) and Goals/Treatment Plan: inpt milieu clinical observation/vital signs per protocol and per clinical status change of position/hob elevation per protocol and per clinical status falls precautions adjust medicines per clinical status disposition planning in progress Estimated Date of D/C: 06/07/17 - Smoking Cessation Smoking Cessation Initiated: No Reason for not providing: defers need
[2017-06-05] MEDS ORDERED: Trimethobenzamide 200 mg/2 mL Inj IM ONE ×2 (13:00→20:55)
[2017-06-05 17:13] LABS: BASO # 0.1 K/uL (0.0-0.2); BASO % 0.6 % (0.0-2.0); EOS # 0.1 K/uL (0.0-0.7); EOS % 0.5 % (0.0-4.0); HEMATOCRIT 38.9 % (34.0-47.0); LYMPH # 1.9 K/uL (1.0-4.3); LYMPH % 12.9 % (20.0-40.0); MEAN CELL VOLUME 86.5 fl (81.0-99.0); MEAN CORPUSCULAR HEMOGLOBIN 27.9 pg (27.0-31.0); MEAN CORPUSCULAR HGB CONC 32.3 g/dL (33.0-37.0); MEAN PLATELET VOLUME 8.2 fl (7.2-11.7); MONO # 0.6 K/uL (0.0-0.8); MONO % 4.1 % (0.0-10.0); NEUT # 11.9 K/uL (1.8-7.0); NEUT % 81.9 % (50.0-75.0); NRBC % 0.1 % (0.0-0.0); RED CELL DISTRIBUTION WIDTH 13.2 % (11.5-14.5); WHITE BLOOD COUNT 14.5 K/uL (4.8-10.8)
[2017-06-05 17:19] LABS: ALB/GLOB RATIO 1.1 (1.0-2.1); ALKALINE PHOSPHATASE 100 U/L (38-126); ALT/SGPT 28 U/L (9-52); AST/SGOT 20 U/L (14-36); BILIRUBIN,TOTAL 0.9 mg/dl (0.2-1.3); BLOOD UREA NITROGEN 23 mg/dl (7-17); CALCIUM 9.7 mg/dL (8.4-10.2); CARBON DIOXIDE 27 mmol/L (22-30); CHLORIDE 102 mmol/L (98-107); GFR AFRICAN-AMERICAN > 60; GLUCOSE,RANDOM 140 mg/dL (65-105); POTASSIUM 4.7 MMOL/L (3.6-5.0); SODIUM 139 mmol/l (132-148)
[2017-06-06 07:26] LABS: BASO # 0.1 K/uL (0.0-0.2); BASO % 0.7 % (0.0-2.0); EOS # 0.3 K/uL (0.0-0.7); EOS % 1.8 % (0.0-4.0); LYMPH # 4.2 K/uL (1.0-4.3); LYMPH % 29.4 % (20.0-40.0); MEAN CELL VOLUME 85.3 fl (81.0-99.0); MEAN CORPUSCULAR HEMOGLOBIN 28.5 pg (27.0-31.0); MEAN CORPUSCULAR HGB CONC 33.4 g/dL (33.0-37.0); MEAN PLATELET VOLUME 8.2 fl (7.2-11.7); MONO # 0.9 K/uL (0.0-0.8); MONO % 6.7 % (0.0-10.0); NEUT # 8.7 K/uL (1.8-7.0); NEUT % 61.4 % (50.0-75.0); NRBC % 0.2 % (0.0-0.0); RED CELL DISTRIBUTION WIDTH 13.2 % (11.5-14.5); WHITE BLOOD COUNT 14.2 K/uL (4.8-10.8)
[2017-06-06 07:32] LABS: ALB/GLOB RATIO 1.1 (1.0-2.1); ALKALINE PHOSPHATASE 91 U/L (38-126); ALT/SGPT 26 U/L (9-52); AST/SGOT 32 U/L (14-36); BLOOD UREA NITROGEN 28 mg/dl (7-17); CALCIUM 9.5 mg/dL (8.4-10.2); CARBON DIOXIDE 26 mmol/L (22-30); CHLORIDE 102 mmol/L (98-107); GFR AFRICAN-AMERICAN > 60; GLUCOSE,RANDOM 107 mg/dL (65-105); SODIUM 140 mmol/l (132-148); TOTAL PROTEIN 7.6 G/DL (6.3-8.2)
[2017-06-06] MEDS: Insulin Regular 100 units/ml SC SCH ×3 (08:58→17:15)
[2017-06-06] MEDS: Saccharomyces Boulardi 250 mg Cap PO SCH ×2 (09:35→17:14)
[2017-06-06] MEDS ORDERED: Sodium Chloride 0.9% 1,000 ML IV SCH (11:00)
--- NOTE | 2017-06-06 20:24 | PCM.PYCHPN ---
Psychiatric Progress Note - Psychiatric Progress Note Patient seen today, length of contact: Patient evaluated, case discussed with team, chart reviewed, 35 min Patient Chief Complaint: PT SEEN BY DR CERNA TODAY FOR EVALUATION OF NAUSEA-IV REGLAN i was feeling down, staff report pt has been calm, rx. adherent with assistance , sleeping and eating fairly well with set up, has not received prns within past 24 ,physical therapy has been to see and evaluate pt pt cannot stand up or sit unassisted, receiving q 2hrs prn and per status change of position and hob elevation in po intake Problems Identified/Issues Discussed: alteration in thought process/cognitive status Overall 108 Attention 34 Memory 16 (18=+ intact skills) conceptualization 33 Construction 3 (4+ = intact skills) Initiation 22 (32+ = intact cognitive skills) Due to deficits evident, patient requires assistance with multiple tasks to ensure safety. Thank you for this referral, Dr. Barney Medical Problems: per chart Diagnostic Results: per psychiatry per medicine per nursing per social work DSM 5 Symptoms Update: ALTERATION IN MOOD Medication Change: No Medical Record Reviewed: Yes Consults ordered or reviewed: HOSPITALIST Mental Status Examination - Cognitive Function Orientation: Person, Place Memory: Impaired Attention: WNL Concentration: Poor Association: WNL Fund of Knowledge: Poor Decription of patient's judgement and insights: impaired - Mood Mood: Neutral - Affect Affect: Constricted - Speech Speech: Appropriate - Formal Thought Process Formal Thought Process: Loosening of associations - Suicidal Ideation Suicidal Ideation: No - Homicidal Ideation Homicidal Ideation: No Goal/Treatment Plan - Goal/Treatment Plan Need for Continued Stay: Remain at risks for inpatient hospitalization, Discharge may exacerbated symptoms, Severe functional impairment Progress Toward Problem(s) and Goals/Treatment Plan: inpt milieu clinical observation/vital signs per protocol and per clinical status change of position/hob elevation per protocol and per clinical status falls precautions adjust medicines per clinical status disposition planning in progress Estimated Date of D/C: 06/08/17 - Smoking Cessation Smoking Cessation Initiated: No Reason for not providing: PT DEFERS
[2017-06-07] MEDS: Insulin Regular 100 units/ml SC SCH ×4 (08:19→21:07)
[2017-06-07] MEDS: Saccharomyces Boulardi 250 mg Cap PO SCH ×2 (08:19→17:02)
[2017-06-07] MEDS ORDERED: Alum-Mag Hydrox-Simethicone Susp (30 mL) PO PRN (11:02)
[2017-06-07] MEDS ORDERED: Magnesium Hydroxide Susp 30 ml UD PO PRN (11:02)
[2017-06-07] MEDS ORDERED: Bismuth Subsalicylate 262 mg/15 ml Sus (240 ml) PO PRN (11:02)
--- NOTE | 2017-06-07 11:06 | PCM.PYCHPN ---
Psychiatric Progress Note - Psychiatric Progress Note Patient seen today, length of contact: Patient evaluated, case discussed with team, chart reviewed, 35 min Patient Chief Complaint: "I'm okay" Problems Identified/Issues Discussed: No significant events over the weekend. Patient is currently at her baseline. No symptoms of depression/anxiety/naomy/paranoia/hallucinations/delusions. + Continued chronic cognitive deficits. No ideation to harm self or others. Medication Change: No Medical Record Reviewed: Yes Consults ordered or reviewed: Psychology consult: Pt is a 61 year old female admitted to [facility] and referred to the assembly instructions writer for cognitive testing. On the DRS, pt scored an overall score of 108. Pt scored in the Deficient Range on Memory, Construction, and Initiation tasks. Pt' s Attention and Conceptualization skills fell within normal limits. Overall 108 Attention 34 Memory 16 (18=+ intact skills) conceptualization 33 Construction 3 (4+ = intact skills) Initiation 22 (32+ = intact cognitive skills) Due to deficits evident, patient requires assistance with multiple tasks to ensure safety. Thank you for this referral, Dr. Barney Mental Status Examination - Cognitive Function Orientation: Person, Place Memory: Impaired Attention: WNL Concentration: Poor Association: WNL Fund of Knowledge: Poor Decription of patient's judgement and insights: Chronically limited I/J due to dementia - Mood Mood: Neutral - Affect Affect: Broad - Speech Speech: Appropriate - Formal Thought Process Formal Thought Process: Loosening of associations Psychotic Thoughts and Behaviors: No AH/VH/paranoia/delusions - Suicidal Ideation Suicidal Ideation: No - Homicidal Ideation Homicidal Ideation: No Goal/Treatment Plan - Goal/Treatment Plan Progress Toward Problem(s) and Goals/Treatment Plan: Dementia w/ behavioral disturbances, Depressive Disorder; patient is currently psychiatrically stable for referral to [facility] for continued physical therapy. -Psychology consult appreciated -Hospitalist consult appreciated -Cipro for UTI -Continue Aricept 5 mg PO HS -Continue Celexa 20 mg PO Daily -Individual and group therapy -Disposition planning-referral to subacute rehabilitation Estimated Date of D/C: 06/08/17 - Smoking Cessation Smoking Cessation Initiated: No Reason for not providing: Not indicated
[2017-06-08] MEDS: Insulin Regular 100 units/ml SC SCH ×4 (08:03→21:04)
[2017-06-08] MEDS: Saccharomyces Boulardi 250 mg Cap PO SCH ×2 (08:31→19:21)
--- NOTE | 2017-06-08 11:51 | PCM.PYCHPN ---
Psychiatric Progress Note - Psychiatric Progress Note Patient seen today, length of contact: Patient evaluated, case discussed with team, chart reviewed, 35 min Patient Chief Complaint: "I'm okay" Problems Identified/Issues Discussed: No significant events overnight. Patient is currently at her baseline. No symptoms of depression/anxiety/naomy/paranoia/hallucinations/delusions. + Continued chronic cognitive deficits. No ideation to harm self or others. Medication Change: No Medical Record Reviewed: Yes Mental Status Examination - Cognitive Function Orientation: Person, Place Memory: Impaired Attention: WNL Concentration: Poor Association: WNL Fund of Knowledge: Poor Decription of patient's judgement and insights: Chronically limited I/J due to dementia - Mood Mood: Neutral - Affect Affect: Broad - Speech Speech: Appropriate - Formal Thought Process Formal Thought Process: Loosening of associations Psychotic Thoughts and Behaviors: No AH/VH/paranoia/delusions - Suicidal Ideation Suicidal Ideation: No - Homicidal Ideation Homicidal Ideation: No Goal/Treatment Plan - Goal/Treatment Plan Progress Toward Problem(s) and Goals/Treatment Plan: Dementia w/ behavioral disturbances, Depressive Disorder; patient is currently psychiatrically stable for referral to [facility] for continued physical therapy. -Psychology consult appreciated -Hospitalist consult appreciated -Tx for UTI -Continue Aricept 5 mg PO HS -Continue Celexa 20 mg PO Daily -Individual and group therapy -Disposition planning-pending placement to subacute rehabilitation Estimated Date of D/C: 06/09/17
[2017-06-09] MEDS: Saccharomyces Boulardi 250 mg Cap PO SCH ×2 (08:34→16:27)
[2017-06-09] MEDS: Insulin Regular 100 units/ml SC SCH ×5 (08:36→21:05)
--- NOTE | 2017-06-09 10:11 | PCM.BM ---
Treatment Plan Problems - Problems identified on initial assessmt Hopelessness/Helpness Date Initiated: 06/01/17 Time Initiated: 01:03 Assessment reference: NA Status: Active Medication nonadherence Date Initiated: 06/01/17 Time Initiated: 01:03 Assessment reference: NA Status: Active Treatment assets and liabiliti Patient Assests: cooperative, good support system Patient Liabilities: physical pain, medical problems (MS), imparied memory - Milieu Protocol Maintain good personal hygiene: daily Encourage regular showers, daily Remind patient to perform daily oral care, daily Assist patient to perform ADL's Conduct patient checks and document Observation sheet: Q15 minutes Maintain personal safety: every shift Educate patient to report safety concerns to staff, every shift Monitor environment for contraband/sharps Medication safety: Monitor for expected outcome, potential side effects: every shift, Assess barriers to learning: every shift, Assess readiness for medication education: every shift Milieu Narrative: Dementia w/ behavioral disturbances, Depressive Disorder; patient is currently psychiatrically stable for referral to [facility] for continued physical therapy. -Psychology consult appreciated -Hospitalist consult appreciated -Tx for UTI -Continue Aricept 5 mg PO HS -Continue Celexa 20 mg PO Daily -Individual and group therapy -Disposition planning-pending placement to subacute rehabilitation Family Contact Family contact: Patient agrees to contact, Telephone contact initiated by staff , Other (Pt has poor communication with her immediate family. Pt's friend/ caregiver, Brandi has been caring for pt and is pt's Healthcare Proxy.) Family contact name: Brandi Prince Family contacted how many times per week?: 2 Family contact comment: [phone] - Goals for Treatment Patient goals for treatment: Pt to be encouraged to attend activity and clinical groups 3-5x per week to identify at least 2 factors contributing to increased aggression and worsened depression. Pt to be encouraged to participate in group activity to develop effective and appropiate coping skills and decreased aggressive bx's. Discharge/Continuing Care - Education Needs Education Needs: Family Medication, Family Diagnosis/Disease Process, Family Coping Skills, Family Placement options, Family Community resources, Family Activities of Daily Living, Family Nutrition, Family Uses of Medical Equipment, Family Health Practices/Safety, Family Personal Hygiene/Grooming, Family Aftercare Safety Plan, Patient Medication, Patient Diagnosis/Disease Process, Patient Coping Skills, Patient Placement options, Patient Community resources, Patient Activities of Daily Living, Patient Nutrition, Patient Uses of Medical Equipment, Patient Health Practices/Safety, Patient Personal Hygiene/Grooming, Patient Aftercare Safety Plan - Discharge Discharge Criteria: Tolerates medication w/o severe side effects, Free of Suicidal thoughts, Free of agitation, Normal sleep pattern, Reduction of target symptoms - Treatment Team Participation Patient/Family/SO Statement: Dementia w/ behavioral disturbances, Depressive Disorder; patient is currently psychiatrically stable for referral to [facility] for continued physical therapy. -Psychology consult appreciated -Hospitalist consult appreciated -Tx for UTI -Continue Aricept 5 mg PO HS -Continue Celexa 20 mg PO Daily -Individual and group therapy -Disposition planning-pending placement to subacute rehabilitation Discussed with Family/SO: Yes (Treatment plan reviewed with caregiver via telephone) Treatment Plan Review - Problem Hopelessness/Helpness Date Initiated: 06/09/17 Time Initiated: 10:11 Progress toward outcomes: improved (Pt is no longer expressing SI and HI. Pt's affect is brighter.) Medication nonadherence Date Initiated: 06/09/17 Time Initiated: 10:11 Progress toward outcomes: improved (Pt is compliant with medications) - Discharge / Continuing Care Discharge to:: Other (Subacute Rehab) Behavioral Health Services: Other (Medication management; support group therapy ; individual therapy; structure environment)
--- NOTE | 2017-06-09 12:50 | PCM.PYCHPN ---
Psychiatric Progress Note - Psychiatric Progress Note Patient seen today, length of contact: Patient evaluated, case discussed with team, chart reviewed, 35 min Patient Chief Complaint: "I'm okay" Problems Identified/Issues Discussed: No significant events. Patient is currently at her baseline. No symptoms of depression/anxiety/naomy/paranoia/hallucinations/delusions. +Continued chronic cognitive deficits. No ideation to harm self or others. Medication Change: No Medical Record Reviewed: Yes Mental Status Examination - Cognitive Function Orientation: Person, Place Memory: Impaired Attention: WNL Concentration: Poor Association: WNL Fund of Knowledge: Poor Decription of patient's judgement and insights: Chronically limited I/J due to dementia - Mood Mood: Neutral - Affect Affect: Broad - Speech Speech: Appropriate - Formal Thought Process Formal Thought Process: Loosening of associations Psychotic Thoughts and Behaviors: No AH/VH/paranoia/delusions - Suicidal Ideation Suicidal Ideation: No - Homicidal Ideation Homicidal Ideation: No Goal/Treatment Plan - Goal/Treatment Plan Need for Continued Stay: Remain at risks for inpatient hospitalization, Discharge may exacerbated symptoms, Severe functional impairment Progress Toward Problem(s) and Goals/Treatment Plan: Dementia w/ behavioral disturbances, Depressive Disorder; patient is currently psychiatrically stable for referral to [facility] for continued physical therapy. -Psychology consult appreciated -Hospitalist consult appreciated -Tx for UTI -Continue Aricept 5 mg PO HS -Continue Celexa 20 mg PO Daily -Individual and group therapy -Disposition planning-pending placement to subacute rehabilitation Estimated Date of D/C: 06/09/17
--- NOTE | 2017-06-10 08:27 | PCM.PYCHPN ---
Psychiatric Progress Note - Psychiatric Progress Note Patient seen today, length of contact: Patient evaluated, case discussed with team, chart reviewed Patient Chief Complaint: "I'm okay" Problems Identified/Issues Discussed: No significant events overnight. Patient is currently at her baseline. No symptoms of depression/anxiety/naomy/paranoia/hallucinations/delusions. + Continued chronic cognitive deficits. No ideation to harm self or others. Medication Change: No Medical Record Reviewed: Yes Mental Status Examination - Cognitive Function Orientation: Person, Place Memory: Impaired Attention: WNL Concentration: Poor Association: WNL Fund of Knowledge: Poor Decription of patient's judgement and insights: Chronically limited I/J due to dementia - Mood Mood: Neutral - Affect Affect: Broad - Speech Speech: Appropriate - Formal Thought Process Formal Thought Process: Loosening of associations Psychotic Thoughts and Behaviors: No AH/VH/paranoia/delusions - Suicidal Ideation Suicidal Ideation: No - Homicidal Ideation Homicidal Ideation: No Goal/Treatment Plan - Goal/Treatment Plan Need for Continued Stay: Remain at risks for inpatient hospitalization, Discharge may exacerbated symptoms, Severe functional impairment Progress Toward Problem(s) and Goals/Treatment Plan: Dementia w/ behavioral disturbances, Depressive Disorder; patient is currently psychiatrically stable for referral to [facility] for continued physical therapy. -Psychology consult appreciated -Hospitalist consult appreciated -Cipro for UTI until 06/12/17 -Continue Aricept 5 mg PO HS -Continue Celexa 20 mg PO Daily -Individual and group therapy -Disposition planning-pending placement to subacute rehabilitation Estimated Date of D/C: 06/11/17 - Smoking Cessation Smoking Cessation Initiated: No Reason for not providing: Not indicated
[2017-06-10] MEDS: Insulin Regular 100 units/ml SC SCH ×4 (08:52→21:11)
[2017-06-10] MEDS: Saccharomyces Boulardi 250 mg Cap PO SCH ×2 (08:56→17:19)
[2017-06-11] MEDS: Insulin Regular 100 units/ml SC SCH ×4 (08:24→22:00)
--- NOTE | 2017-06-11 08:32 | PCM.PYCHDC ---
Mental Status Examination - Mental Status Examination Orientation: Person, Place Memory: Impaired Mood: Neutral Affect: Broad Speech: Appropriate Attention: Poor Concentration: Poor Association: Loose Fund of Knowledge: Poor Formal Thought Process: No Impairment Description of patient's judgement and insight: Chronically limited I/J due to dementia Psychotic Thoughts and Behaviors: No AH/VH/paranoia/delusions Suicidal Ideation: No Current Homicidal Ideation?: No Discharge Summary - Discharge Note Reason for Hospitalization: HPI: 61 year old Single female, w/ h/o dementia, MS, chronic back pain , diabetes, HTN, depression, presents w/ suicidal threats in the context of non- compliance w/ medications. Patient is now denying suidical ideation/plan/ intent. Denies hallucinations to field underwriter, but as per chart patient has admitted to having intermittent visual hallucinations to her sister. Patient's sister stated that she does need help at this time. Patient eats one meal all day with some snacks. No HI. Patient is A + O x 2 (self, location) and does not know why she is in the hospital, reports that her mood is fine at this time and denies ever making suicidal threats. Collateral obtained in ER by manufacturing worker: Patient's sister Brandi Mercer [phone], stated that the patient is getting more aggressive lately. She is talking about killing herself and also stating that her sister would as well. Patient's sister stated that she is not med compliant and that she tends to deny all mental health issues. She will become agitated when prompted to take medication and will begin to scream at the sister. Patient's sister stated that the patient is better with her behavior with others. She stated that she can't get her to walk sometimes or to change her diaper. Patient's sister is worried about her eating as well. She reported that the patient has lost about 30 lbs over the past year. She reported that it is a struggle to get the patient to eat meals. Patient's sister is afraid that she is decompensating. Head Strength And Conditioning Coach also spoke with patient's sister, Brandi Mercer, who is also the patient 's health care proxy. Head Strength And Conditioning Coach given permission to modify the patient's medications as medically and psychiatrically indicated. PPHx: Patient was admitted to [facility] from 04/26/15 to 05/09/15. Not currently complaint w/ treatment or followup. Did not follow-up w/ psychiatric followup at all after discharge from the hospital in 2014. She was discharged on Aricept 5 mg PO HS, Celexa 20 mg PO Daily at that time. MHx: MS, Chronic back pain, Diabetes, Hypertension; *Home meds confirmed by [facility]- Atenolol 50 mg PO Daily, Crestor 10 mg PO HS, Losartan 100 mg PO Daily All: NKDA SHx: Lives w/ sister in her home. Denies ETOH/drugs. --- Psychology consult from 05/03/[address] Barney: Pt is a 59 year old female admitted to [facility] and referred to the field underwriter for eval. On the DRS, pt scored an overall scored of 108. Pt scored within normal limits of Attention, Construction and Conceptualization tasks. Pt scored in the Deficient Range on Initiation and Memory tasks. Overall 108 (125+ within normal limit) Attention: 32 (normal limits) Construction 5 (normal limits) Conceptualization 35 (within normal limtis) Initiation 21 (deficient range) Memory 15 (Deficient range) Laboratory Data: Abnormal Lab Results 06/10/17 06/10/17 06/10/17 10:58 15:21 19:36 POC Glucose (mg/dL) 164 H 158 H 246 H 06/11/17 06:19 POC Glucose (mg/dL) 122 H Consultations:: List each consultation separately and include: 1. Reason for request. 2. Findings. 3. Follow-up Consultations: Psychology consult: Pt is a 61 year old female admitted to [facility] and referred to the field underwriter for cognitive testing. On the DRS, pt scored an overall score of 108. Pt scored in the Deficient Range on Memory, Construction, and Initiation tasks. Pt' s Attention and Conceptualization skills fell within normal limits. Overall 108 Attention 34 Memory 16 (18=+ intact skills) conceptualization 33 Construction 3 (4+ = intact skills) Initiation 22 (32+ = intact cognitive skills) Due to deficits evident, patient requires assistance with multiple tasks to ensure safety. Thank you for this referral, Dr. Barney Summary of Hospital Course include:: 1. Description of specific treatment plan utilized for patients during their course of treatmen. 2. Summarize the time- course for resolution of acute symptoms and/or regressed behaviors. 3. Describe issues identified and worked on during hospitalization. 4. Describe medication utilized. 5. Describe medical problems identified and treated. 6. Reassessment of suicide risk Summary of Hospital Course: Patient admitted to the psychiatry unit. Individual and group therapy were provided. Patient was stabilized on Celexa 20 mg PO and Aricept 5 mg PO HS. She does not express any ideation to harm self or others. She was also treated for a UTI. - Final Diagnosis (DSM 5) Condition upon Discharge: FAIR DSM 5: Dementia with behavioral disturbances, Depressive Disorder Disposition: OTHER INSTITUTION Follow-up Treatment Plan: Dementia w/ behavioral disturbances, Depressive Disorder; patient is currently psychiatrically stable for discharge to [facility] for continued physical therapy. -Psychology consult appreciated -Hospitalist consult appreciated -Continue Aricept 5 mg PO HS -Continue Celexa 20 mg PO Daily -Individual and group therapy -Disposition planning-discharge to [facility] - Smoking Cessation Smoking Cessation Medication prescribed: No Reason for not providing: Not indicated - Antipsychotic Medications Pt discharged on 2 or more routine antipsychotic medications: No
[2017-06-11] MEDS: Saccharomyces Boulardi 250 mg Cap PO SCH ×2 (08:43→16:57)
[2017-06-11 09:01] LABS: BASO # 0.1 K/uL (0.0-0.2); BASO % 0.8 % (0.0-2.0); EOS # 0.6 K/uL (0.0-0.7); EOS % 3.8 % (0.0-4.0); HEMATOCRIT 38.3 % (34.0-47.0); LYMPH # 3.7 K/uL (1.0-4.3); LYMPH % 24.5 % (20.0-40.0); MEAN CELL VOLUME 87.2 fl (81.0-99.0); MEAN CORPUSCULAR HEMOGLOBIN 28.5 pg (27.0-31.0); MEAN CORPUSCULAR HGB CONC 32.7 g/dL (33.0-37.0); MEAN PLATELET VOLUME 8.7 fl (7.2-11.7); MONO % 6.9 % (0.0-10.0); NEUT # 9.6 K/uL (1.8-7.0); NRBC % 0.1 % (0.0-0.0); RED CELL DISTRIBUTION WIDTH 13.3 % (11.5-14.5)
[2017-06-11] MEDS: Tmp-Smz 800 mg-160 mg DS Tab PO SCH ×2 (12:51→21:15)
[2017-06-11] MEDS ORDERED: Bismuth Subsalicylate 262 mg/15 ml Sus (240 ml) PO PRN (13:04)
[2017-06-11] MEDS ORDERED: Alum-Mag Hydrox-Simethicone Susp (30 mL) PO PRN (13:04)
[2017-06-11] MEDS ORDERED: Magnesium Hydroxide Susp 30 ml UD PO PRN (13:04)
[2017-06-12] MEDS: Tmp-Smz 800 mg-160 mg DS Tab PO SCH ×2 (08:27→21:10)
[2017-06-12] MEDS: Saccharomyces Boulardi 250 mg Cap PO SCH ×2 (08:29→16:18)
[2017-06-12] MEDS: Insulin Regular 100 units/ml SC SCH ×4 (08:30→21:11)
--- NOTE | 2017-06-12 11:11 | PCM.PYCHPN ---
Psychiatric Progress Note - Psychiatric Progress Note Patient seen today, length of contact: pt seen today and evaluated Patient Chief Complaint: pt has been improved and stabilized with meds but d/c is cancelled today due to pt not approved for the placement by insurance. Medication Change: No Medical Record Reviewed: Yes Mental Status Examination - Cognitive Function Orientation: Person, Place Memory: Impaired Attention: Poor Concentration: Poor Association: Loose Fund of Knowledge: Poor - Mood Mood: Neutral - Affect Affect: Broad - Speech Speech: Appropriate - Formal Thought Process Formal Thought Process: No Impairment - Suicidal Ideation Suicidal Ideation: No - Homicidal Ideation Homicidal Ideation: No Goal/Treatment Plan - Goal/Treatment Plan Need for Continued Stay: Remain at risks for inpatient hospitalization, Discharge may exacerbated symptoms, Severe functional impairment Estimated Date of D/C: 06/11/17
[2017-06-12] MEDS ORDERED: Trimethobenzamide 200 mg/2 mL Inj IM PRN (13:00)
[2017-06-13] MEDS: Insulin Regular 100 units/ml SC SCH ×4 (08:53→21:13)
[2017-06-13] MEDS: Tmp-Smz 800 mg-160 mg DS Tab PO SCH ×2 (08:54→21:13)
[2017-06-13] MEDS: Saccharomyces Boulardi 250 mg Cap PO SCH ×2 (08:56→16:01)
[2017-06-13 12:58] LABS: ALB/GLOB RATIO 1.1 (1.0-2.1); ALKALINE PHOSPHATASE 100 U/L (38-126); ALT/SGPT 27 U/L (9-52); AST/SGOT 18 U/L (14-36); BILIRUBIN,TOTAL 0.8 mg/dl (0.2-1.3); BLOOD UREA NITROGEN 21 mg/dl (7-17); CALCIUM 9.7 mg/dL (8.4-10.2); CARBON DIOXIDE 27 mmol/L (22-30); CHLORIDE 102 mmol/L (98-107); GFR AFRICAN-AMERICAN > 60; GLUCOSE,RANDOM 134 mg/dL (65-105); POTASSIUM 4.4 MMOL/L (3.6-5.0); SODIUM 139 mmol/l (132-148); TOTAL PROTEIN 7.6 G/DL (6.3-8.2)
[2017-06-13] MEDS: Pantoprazole 40 mg EC Tab PO SCH (13:06)
[2017-06-13 21:45] LABS: RBC URINE < 1 /hpf (0-3); URINE BACTERIA MANY (<OCC); URINE BILIRUBIN NEGATIVE (NEGATIVE); URINE BLOOD NEGATIVE (NEGATIVE); URINE COLOR YELLOW (YELLOW); URINE GLUCOSE (UA) NEG (Normal); URINE KETONE NEGATIVE (NEGATIVE); URINE LEUKOCYTE ESTERASE NEG Leu/uL (Negative); URINE PROTEIN NEGATIVE (NEGATIVE); URINE UROBILINOGEN 0.2-1.0 mg/dL (0.2-1.0); WBC URINE 1 /hpf (0-5)
[2017-06-14] MEDS ORDERED: Trimethobenzamide 200 mg/2 mL Inj IM PRN (06:04)
[2017-06-14] MEDS: Saccharomyces Boulardi 250 mg Cap PO SCH ×2 (08:46→17:17)
[2017-06-14] MEDS: Pantoprazole 40 mg EC Tab PO SCH (08:47)
[2017-06-14] MEDS: Insulin Regular 100 units/ml SC SCH ×4 (08:48→21:12)
--- NOTE | 2017-06-14 13:06 | PCM.PYCHPN ---
Psychiatric Progress Note - Psychiatric Progress Note Patient seen today, length of contact: Patient evaluated, case discussed with team, chart reviewed Patient Chief Complaint: "I'm okay" Problems Identified/Issues Discussed: No significant events over the weekend. Patient pending approval for placement in [facility]. Patient is currently at her baseline. No symptoms of depression/ anxiety/naomy/paranoia/hallucinations/delusions. +Continued chronic cognitive deficits. No ideation to harm self or others. Medication Change: No Medical Record Reviewed: Yes Mental Status Examination - Cognitive Function Orientation: Person, Place Memory: Impaired Attention: Poor Concentration: Poor Association: Loose Fund of Knowledge: Poor Decription of patient's judgement and insights: Chronic limited I/J due to dementia - Mood Mood: Neutral - Affect Affect: Broad - Speech Speech: Appropriate - Formal Thought Process Formal Thought Process: No Impairment Psychotic Thoughts and Behaviors: No AH/VH/paranoia/delusions - Suicidal Ideation Suicidal Ideation: No - Homicidal Ideation Homicidal Ideation: No Goal/Treatment Plan - Goal/Treatment Plan Need for Continued Stay: Remain at risks for inpatient hospitalization, Discharge may exacerbated symptoms, Severe functional impairment Progress Toward Problem(s) and Goals/Treatment Plan: Dementia w/ behavioral disturbances, Depressive Disorder; patient is currently psychiatrically stable for discharge to [facility] for continued physical therapy. Pending approval for placement in [facility]. -Psychology consult appreciated -Hospitalist consult appreciated -Continue Aricept 5 mg PO HS -Continue Celexa 20 mg PO Daily -Individual and group therapy -Disposition planning-discharge to [facility] when approved Estimated Date of D/C: 06/16/17 - Smoking Cessation Smoking Cessation Initiated: No Reason for not providing: Not indicated
[2017-06-15] MEDS: Saccharomyces Boulardi 250 mg Cap PO SCH ×2 (08:54→17:13)
[2017-06-15] MEDS: Insulin Regular 100 units/ml SC SCH ×4 (08:54→21:10)
[2017-06-15] MEDS: Pantoprazole 40 mg EC Tab PO SCH (08:57)
--- NOTE | 2017-06-15 10:19 | PCM.PYCHPN ---
Psychiatric Progress Note - Psychiatric Progress Note Patient seen today, length of contact: Patient evaluated, case discussed with team, chart reviewed Patient Chief Complaint: "I'm okay" Problems Identified/Issues Discussed: No significant events. Patient pending approval for placement in [facility]. Patient is currently at her baseline. No symptoms of depression/anxiety/naomy/paranoia/ hallucinations/delusions. +Continued chronic cognitive deficits. No ideation to harm self or others. Medication Change: No Medical Record Reviewed: Yes Mental Status Examination - Cognitive Function Orientation: Person, Place Memory: Impaired Attention: Poor Concentration: Poor Association: Loose Fund of Knowledge: Poor Decription of patient's judgement and insights: Chronic limited I/J due to dementia - Mood Mood: Neutral - Affect Affect: Broad - Speech Speech: Appropriate - Formal Thought Process Formal Thought Process: No Impairment Psychotic Thoughts and Behaviors: No AH/VH/paranoia/delusions - Suicidal Ideation Suicidal Ideation: No - Homicidal Ideation Homicidal Ideation: No Goal/Treatment Plan - Goal/Treatment Plan Need for Continued Stay: Remain at risks for inpatient hospitalization, Discharge may exacerbated symptoms, Severe functional impairment Progress Toward Problem(s) and Goals/Treatment Plan: Dementia w/ behavioral disturbances, Depressive Disorder; patient is currently psychiatrically stable for discharge to [facility] for continued physical therapy. Pending approval for placement in [facility]. -Psychology consult appreciated -Hospitalist consult appreciated -Continue Aricept 5 mg PO HS -Continue Celexa 20 mg PO Daily -Individual and group therapy -Disposition planning-discharge to [facility] when approved Estimated Date of D/C: 06/16/17
[2017-06-16 07:32] LABS: BASO # 0.1 K/uL (0.0-0.2); BASO % 0.9 % (0.0-2.0); EOS # 0.4 K/uL (0.0-0.7); EOS % 3.5 % (0.0-4.0); HEMATOCRIT 37.3 % (34.0-47.0); LYMPH # 3.5 K/uL (1.0-4.3); LYMPH % 29.9 % (20.0-40.0); MEAN CELL VOLUME 85.7 fl (81.0-99.0); MEAN CORPUSCULAR HEMOGLOBIN 28.6 pg (27.0-31.0); MEAN CORPUSCULAR HGB CONC 33.4 g/dL (33.0-37.0); MEAN PLATELET VOLUME 8.3 fl (7.2-11.7); MONO # 0.8 K/uL (0.0-0.8); MONO % 6.8 % (0.0-10.0); NEUT # 6.8 K/uL (1.8-7.0); NEUT % 58.9 % (50.0-75.0); RED CELL DISTRIBUTION WIDTH 13.1 % (11.5-14.5); WHITE BLOOD COUNT 11.5 K/uL (4.8-10.8)
[2017-06-16] MEDS: Saccharomyces Boulardi 250 mg Cap PO SCH ×2 (08:07→17:08)
[2017-06-16] MEDS: Insulin Regular 100 units/ml SC SCH ×4 (08:08→21:05)
[2017-06-16] MEDS: Pantoprazole 40 mg EC Tab PO SCH (08:09)
--- NOTE | 2017-06-16 09:26 | PCM.PYCHPN ---
Psychiatric Progress Note - Psychiatric Progress Note Patient seen today, length of contact: Patient evaluated, case discussed with team, chart reviewed Patient Chief Complaint: "I'm okay" Problems Identified/Issues Discussed: No significant events overnight. Patient pending approval for placement in [facility]. Patient is currently at her baseline. No symptoms of depression/anxiety/ naomy/paranoia/hallucinations/delusions. +Continued chronic cognitive deficits. No ideation to harm self or others. Medication Change: No Medical Record Reviewed: Yes Mental Status Examination - Cognitive Function Orientation: Person, Place Memory: Impaired Attention: Poor Concentration: Poor Association: Loose Fund of Knowledge: Poor Decription of patient's judgement and insights: Chronic limited I/J due to dementia - Mood Mood: Neutral - Affect Affect: Broad - Speech Speech: Appropriate - Formal Thought Process Formal Thought Process: No Impairment Psychotic Thoughts and Behaviors: No AH/VH/paranoia/delusions - Suicidal Ideation Suicidal Ideation: No - Homicidal Ideation Homicidal Ideation: No Goal/Treatment Plan - Goal/Treatment Plan Progress Toward Problem(s) and Goals/Treatment Plan: Dementia w/ behavioral disturbances, Depressive Disorder; patient is currently psychiatrically stable for discharge to [facility] for continued physical therapy. Pending approval for placement in [facility]. -Psychology consult appreciated -Hospitalist consult appreciated -Continue Aricept 5 mg PO HS -Continue Celexa 20 mg PO Daily -Individual and group therapy -Disposition planning-discharge to [facility] when approved Estimated Date of D/C: 06/17/17 - Smoking Cessation Smoking Cessation Initiated: No Reason for not providing: Not indicated
--- NOTE | 2017-06-16 15:08 | PCM.BM ---
Treatment Plan Problems - Problems identified on initial assessmt Hopelessness/Helpness Date Initiated: 06/01/17 Time Initiated: 10:11 Assessment reference: NA Status: Active Medication nonadherence Date Initiated: 06/01/17 Time Initiated: 10:11 Assessment reference: NA Status: Active Impaired ambulation/stair climbing Date Initiated: 06/07/17 Time Initiated: 15:25 Assessment reference: NA Status: Active Impaired functional transfers Date Initiated: 06/07/17 Time Initiated: 15:25 Assessment reference: NA Status: Active Treatment assets and liabiliti Patient Assests: cooperative, good support system Patient Liabilities: physical pain, medical problems (MS), imparied memory - Milieu Protocol Maintain good personal hygiene: daily Encourage regular showers, daily Remind patient to perform daily oral care, daily Assist patient to perform ADL's Conduct patient checks and document Observation sheet: Q15 minutes Maintain personal safety: every shift Educate patient to report safety concerns to staff, every shift Monitor environment for contraband/sharps Medication safety: Monitor for expected outcome, potential side effects: every shift, Assess barriers to learning: every shift, Assess readiness for medication education: every shift Milieu Narrative: Dementia w/ behavioral disturbances, Depressive Disorder; patient is currently psychiatrically stable for discharge to [facility] for continued physical therapy. Pending approval for placement in [facility]. -Psychology consult appreciated -Hospitalist consult appreciated -Continue Aricept 5 mg PO HS -Continue Celexa 20 mg PO Daily -Individual and group therapy -Disposition planning-discharge to [facility] when approved Family Contact Family contact: Patient agrees to contact, Telephone contact initiated by staff , Other (Pt has poor communication with her immediate family. Pt's friend/ caregiver, Brandi has been caring for pt and is pt's Healthcare Proxy.) Family contact name: Brandi Prince Family contacted how many times per week?: 2 Family contact comment: [phone] - Goals for Treatment Patient goals for treatment: Pt to be encouraged to attend activity and clinical groups 3-5x per week to identify at least 2 factors contributing to increased aggression and worsened depression. Pt to be encouraged to participate in group activity to develop effective and appropiate coping skills and decreased aggressive bx's. Discharge/Continuing Care - Education Needs Education Needs: Family Medication, Family Diagnosis/Disease Process, Family Coping Skills, Family Placement options, Family Community resources, Family Activities of Daily Living, Family Nutrition, Family Uses of Medical Equipment, Family Health Practices/Safety, Family Personal Hygiene/Grooming, Family Aftercare Safety Plan, Patient Medication, Patient Diagnosis/Disease Process, Patient Coping Skills, Patient Placement options, Patient Community resources, Patient Activities of Daily Living, Patient Nutrition, Patient Uses of Medical Equipment, Patient Health Practices/Safety, Patient Personal Hygiene/Grooming, Patient Aftercare Safety Plan - Discharge Discharge Criteria: Tolerates medication w/o severe side effects, Free of Suicidal thoughts, Free of agitation, Normal sleep pattern, Reduction of target symptoms Discharge to:: Other (Subacute Rehab) - Treatment Team Participation Patient/Family/SO Statement: Dementia w/ behavioral disturbances, Depressive Disorder; patient is currently psychiatrically stable for discharge to [facility] for continued physical therapy. Pending approval for placement in [facility]. -Psychology consult appreciated -Hospitalist consult appreciated -Continue Aricept 5 mg PO HS -Continue Celexa 20 mg PO Daily -Individual and group therapy -Disposition planning-discharge to [facility] when approved Discussed with Family/SO: Yes (Treatment plan reviewed with caregiver via telephone) Treatment Plan Review - Problem Hopelessness/Helpness Date Initiated: 06/09/17 Time Initiated: 10:11 Progress toward outcomes: improved (Pt is no longer expressing SI/HI and passive wishes.) Medication nonadherence Date Initiated: 06/09/17 Time Initiated: 10:11 Progress toward outcomes: improved (Pt is compliant with medications) Impaired ambulation/stair climbing Date Initiated: 06/07/17 Time Initiated: 15:25 Progress toward outcomes: unchanged (Pt continues to receive PT/PT services. Pt' s mobility is limited and constricted due to medical issues) Impaired functional transfers Date Initiated: 06/07/17 Time Initiated: 15:25 Progress toward outcomes: unchanged (Pt requires extensive assistance with transfers. Pt unable to transfer on her own; requires assistance of 2+ staff members) - Discharge / Continuing Care Discharge to:: Other ([facility] vs. home w/ services. Referral for [facility] was submitted and denied by [facility]. has filed appeal and awaiting on response/ outcome) Behavioral Health Services: Outpatient therapy, Home health care, Other ( Psychiatric follow up vs. in-house community call (Dr. Bettina Doshi MD)) Health Needs: Follow up care/test, Doctor appointments, Special equipment, Nutritional, Medications/Rx, Educational, Recreational/Social
--- NOTE | 2017-06-16 15:56 | CP.PCM.PN ---
Subjective - Date & Time of Evaluation Date of Evaluation: 06/16/17 Time of Evaluation: 15:45 - Subjective Subjective: Asked by psych to evaluate patient for leukocytosis. Patient seen and evaluated bedside. Lying in bed comfortably in NAD.Feeling well. Denies any urinary symptoms, dysuria, frequency, abdominal pain or discomfort , respiratory symptoms.Hemodynamically stable, afebrile No acute issues overnight urine cx 06/13/17 with no growth Objective - Vital Signs/Intake and Output Vital Signs (last 24 hours): Temp Pulse Resp BP Pulse Ox 96.8 F L 67 20 150/84 99 06/16/17 05:53 06/16/17 08:09 06/16/17 05:53 06/16/17 08:09 06/04/17 13:20 - Medications Medications: Current Medications Acetaminophen (Tylenol 325mg Tab) 650 mg PO Q4 PRN PRN Reason: Pain, moderate (4-7) Al Hydrox/Mg Hydrox/Simethicone (Maalox Plus 30 Ml) 30 ml PO Q4 PRN PRN Reason: Dyspepsia Amlodipine Besylate (Norvasc) 5 mg PO DAILY [facility] Last Admin: 06/16/17 08:08 Dose: 5 mg Atenolol (Tenormin) 50 mg PO DAILY [facility] Last Admin: 06/16/17 08:09 Dose: 50 mg Atorvastatin Calcium (Lipitor) 20 mg PO HS [facility] Last Admin: 06/15/17 21:10 Dose: 20 mg Bismuth Subsalicylate (Pepto-Bismol) 524 mg PO Q4 PRN PRN Reason: Diarrhea Cholecalciferol (Vitamin D) 5,000 iu PO DAILY [facility] Last Admin: 06/16/17 08:10 Dose: 5,000 iu Citalopram Hydrobromide (Celexa) 20 mg PO DAILY [facility] Last Admin: 06/16/17 08:06 Dose: 20 mg Donepezil HCl (Aricept) 5 mg PO HS [facility] Last Admin: 06/15/17 21:10 Dose: 5 mg Insulin Human Regular (Humulin R) 0 units SC [facility] PRN Reason: Protocol Last Admin: 06/16/17 12:23 Dose: 2 u Lorazepam (Ativan) 0.5 mg PO HS PRN PRN Reason: Insomnia Stop: 06/25/17 13:05 Lorazepam (Ativan) 0.5 mg PO Q6 PRN PRN Reason: Anixety/Agitation Stop: 06/25/17 13:05 Losartan Potassium (Cozaar) 100 mg PO DAILY [facility] Last Admin: 06/16/17 08:07 Dose: 100 mg Magnesium Hydroxide (Milk Of Magnesia) 30 ml PO HS PRN PRN Reason: Constipation Metoclopramide HCl (Reglan) 5 mg PO TIDAC [facility] Last Admin: 06/16/17 12:21 Dose: 5 mg Pantoprazole Sodium (Protonix Ec Tab) 40 mg PO DAILY [facility] Last Admin: 06/16/17 08:09 Dose: 40 mg Saccharomyces Boulardii (Florastor) 250 mg PO BID [facility] Last Admin: 06/16/17 08:07 Dose: 250 mg Trimethobenzamide HCl (Tigan) 200 mg IM Q8 PRN PRN Reason: Nausea/Vomiting - Labs Labs: 06/16/17 07:05 06/13/17 12:00 - Constitutional Appears: Non-toxic, No Acute Distress - Head Exam Head Exam: ATRAUMATIC, NORMOCEPHALIC - Eye Exam Eye Exam: EOMI, Normal appearance, PERRL Pupil Exam: NORMAL ACCOMODATION - ENT Exam ENT Exam: Mucous Membranes Moist, Normal Exam - Neck Exam Neck Exam: Full ROM, Normal Inspection - Respiratory Exam Respiratory Exam: Clear to Ausculation Bilateral, NORMAL BREATHING PATTERN. absent: Rales, Rhonchi, Wheezes - Cardiovascular Exam Cardiovascular Exam: REGULAR RHYTHM, +S1, +S2 - GI/Abdominal Exam GI & Abdominal Exam: Soft, Normal Bowel Sounds. absent: Distended, Guarding, Tenderness, Rebound - Rectal Exam Rectal Exam: Deferred - Extremities Exam Extremities Exam: Full ROM, Normal Capillary Refill, Normal Inspection. absent : Pedal Edema - Neurological Exam Neurological Exam: Alert, Awake, CN II-XII Intact - Psychiatric Exam Psychiatric exam: Normal Affect - Skin Skin Exam: Dry, Normal Color Assessment and Plan - Assessment and Plan (Free Text) Assessment: 61 y/o female with PMH Schizofrenia, depression and paranoia, DM , HTN MS , chronic lower back pain was admitted to psych for management due to her suicidal ideation and paranoia . Medicine was called to evaluate patient for her leukocytosis. She denies any urinary sx , upper respiratory sx, afebrile 1. Psychiatric disorder management as per psych 2. UTI ruled out urine cx 06/13 showed no growth patient has no urinary sx and no fever 3.HTN controlled on Norvasc , losartan and tenormin 4. DM type II Accuchecks, insulin coverage Hgb A1c 6.3 controlled with diabetic diet 5.Dyslipidemia on Statin 6. Leukocytosis WBC 11 k most likely reactive There is no signs or source of infection Will sign off the case Re consult if needed
[2017-06-17 06:33] VITALS: RESP 20
[2017-06-17] MEDS: Pantoprazole 40 mg EC Tab PO SCH (09:05)
[2017-06-17] MEDS: Saccharomyces Boulardi 250 mg Cap PO SCH ×2 (09:05→17:26)
[2017-06-17] MEDS: Insulin Regular 100 units/ml SC SCH ×3 (09:06→17:25)
--- NOTE | 2017-06-17 09:29 | PCM.PYCHDC ---
Mental Status Examination - Mental Status Examination Orientation: Person, Place Memory: Impaired Mood: Neutral Affect: Broad Speech: Appropriate Concentration: Poor Fund of Knowledge: Poor Formal Thought Process: No Impairment Description of patient's judgement and insight: Chronic limited I/J due to dementia Psychotic Thoughts and Behaviors: No AH/VH/paranoia/delusions Suicidal Ideation: No Current Homicidal Ideation?: No Discharge Summary - Discharge Note Reason for Hospitalization: HPI: 61 year old Single female, w/ h/o dementia, MS, chronic back pain , diabetes, HTN, depression, presents w/ suicidal threats in the context of non- compliance w/ medications. Patient is now denying suidical ideation/plan/ intent. Denies hallucinations to residential mortgage underwriter, but as per chart patient has admitted to having intermittent visual hallucinations to her sister. Patient's sister stated that she does need help at this time. Patient eats one meal all day with some snacks. No HI. Patient is A + O x 2 (self, location) and does not know why she is in the hospital, reports that her mood is fine at this time and denies ever making suicidal threats. Collateral obtained in ER by emergency service worker: Patient's sister Brandi Mercer [phone], stated that the patient is getting more aggressive lately. She is talking about killing herself and also stating that her sister would as well. Patient's sister stated that she is not med compliant and that she tends to deny all mental health issues. She will become agitated when prompted to take medication and will begin to scream at the sister. Patient's sister stated that the patient is better with her behavior with others. She stated that she can't get her to walk sometimes or to change her diaper. Patient's sister is worried about her eating as well. She reported that the patient has lost about 30 lbs over the past year. She reported that it is a struggle to get the patient to eat meals. Patient's sister is afraid that she is decompensating. Cash Management Specialist also spoke with patient's sister, Brandi Mercer, who is also the patient 's health care proxy. Cash Management Specialist given permission to modify the patient's medications as medically and psychiatrically indicated. PPHx: Patient was admitted to [facility] from 04/26/15 to 05/09/15. Not currently complaint w/ treatment or followup. Did not follow-up w/ psychiatric followup at all after discharge from the hospital in 2014. She was discharged on Aricept 5 mg PO HS, Celexa 20 mg PO Daily at that time. MHx: MS, Chronic back pain, Diabetes, Hypertension; *Home meds confirmed by [facility] [place]- Atenolol 50 mg PO Daily, Crestor 10 mg PO HS, Losartan 100 mg PO Daily All: NKDA SHx: Lives w/ sister in her home. Denies ETOH/drugs. --- Psychology consult from 05/03/[address] Barney: Pt is a 59 year old female admitted to [facility] and referred to the residential mortgage underwriter for eval. On the DRS, pt scored an overall scored of 108. Pt scored within normal limits of Attention, Construction and Conceptualization tasks. Pt scored in the Deficient Range on Initiation and Memory tasks. Overall 108 (125+ within normal limit) Attention: 32 (normal limits) Construction 5 (normal limits) Conceptualization 35 (within normal limtis) Initiation 21 (deficient range) Memory 15 (Deficient range) Laboratory Data: Abnormal Lab Results 06/16/17 06/16/17 06/16/17 10:30 15:23 19:58 POC Glucose (mg/dL) 214 H 179 H 164 H 06/17/17 06:08 POC Glucose (mg/dL) 124 H Consultations:: List each consultation separately and include: 1. Reason for request. 2. Findings. 3. Follow-up Consultations: Psychology consult: Pt is a 61 year old female admitted to [facility] and referred to the residential mortgage underwriter for cognitive testing. On the DRS, pt scored an overall score of 108. Pt scored in the Deficient Range on Memory, Construction, and Initiation tasks. Pt' s Attention and Conceptualization skills fell within normal limits. Overall 108 Attention 34 Memory 16 (18=+ intact skills) conceptualization 33 Construction 3 (4+ = intact skills) Initiation 22 (32+ = intact cognitive skills) Due to deficits evident, patient requires assistance with multiple tasks to ensure safety. Thank you for this referral, Dr. Barney Summary of Hospital Course include:: 1. Description of specific treatment plan utilized for patients during their course of treatmen. 2. Summarize the time- course for resolution of acute symptoms and/or regressed behaviors. 3. Describe issues identified and worked on during hospitalization. 4. Describe medication utilized. 5. Describe medical problems identified and treated. 6. Reassessment of suicide risk Summary of Hospital Course: Patient admitted to the psychiatry unit. Individual and group therapy were provided. Patient was stabilized on Celexa 20 mg PO and Aricept 5 mg PO HS. She does not express any ideation to harm self or others. She was also treated for a UTI. - Final Diagnosis (DSM 5) Condition upon Discharge: FAIR DSM 5: Dementia w/ behavioral disturbances, Depressive Disorder Disposition: OTHER INSTITUTION Follow-up Treatment Plan: Dementia w/ behavioral disturbances, Depressive Disorder; patient is currently psychiatrically stable for discharge. -Psychology consult appreciated -Hospitalist consult appreciated -Continue Aricept 5 mg PO HS -Continue Celexa 20 mg PO Daily -Individual and group therapy -Disposition planning-discharge to home w/ home PT Prescriptions/Medication Reconciliation: amLODIPine [Norvasc] 5 mg PO DAILY #30 tab Atenolol [Tenormin] 50 mg PO DAILY #30 tab Atorvastatin [Lipitor] 20 mg PO HS #30 tab Cholecalciferol (Vitamin D3) [Vitamin D3] 5,000 unit PO DAILY #30 tablet Citalopram [celeXA] 20 mg PO DAILY #30 tab Donepezil [Aricept] 5 mg PO HS #30 tab Losartan [Cozaar] 100 mg PO DAILY #30 tab Pantoprazole [Protonix EC Tab] 40 mg PO DAILY #30 ect Saccharomyces Boulardi [Florastor] 250 mg PO BID #60 cap - Smoking Cessation Smoking Cessation Medication prescribed: No Reason for not providing: Not indicated - Antipsychotic Medications Pt discharged on 2 or more routine antipsychotic medications: No
[2017-06-17 17:59] VITALS: BP 130/56; PULSE 69; TEMP 97.7
== END 2017-06-17 21:00 | disposition home or self-care (01) | DRG 884 ==
LOC: H.ER 13:52 → H.EROBSV 16:00 → OBSVTOIN 22:15 → H.ERHOLD 22:18 → H.STEP 23:38
PROVIDERS: ADMIT Psychiatry & Neurology Psychiatry; ATTEND Psychiatry & Neurology Psychiatry
PROC: GZ51ZZZ Individual Psychotherapy, Behavioral (ICD-10-PCS; principal; 2017-05-31)
DX: F03.91 Unspecified dementia, unspecified severity, with behavioral disturbance (principal); G35 Multiple sclerosis; R45.851 Suicidal ideations; N39.0 Urinary tract infection, site not specified; I10 Essential (primary) hypertension; F32.9 Major depressive disorder, single episode, unspecified; F20.9 Schizophrenia, unspecified; E11.9 Type 2 diabetes mellitus without complications; E78.00 Pure hypercholesterolemia, unspecified; E78.5 Hyperlipidemia, unspecified; F22 Delusional disorders; G47.30 Sleep apnea, unspecified; Z79.899 Other long term (current) drug therapy; Z87.891 Personal history of nicotine dependence; Z91.14 Patient's other noncompliance with medication regimen; G89.29 Other chronic pain; M54.5 Low back pain; R11.0 Nausea; R41.89 Other symptoms and signs involving cognitive functions and awareness